=== PATIENT | male | born 2000 | race Caucasian/White ===

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

== ENCOUNTER → 2020-12-06 | Day surgery (SDC) | payer BC, OTHER ==
[2020-12-04 13:28] VITALS: BMI 41.7
[~2020-12-06] MED LIST changes: +BUPIVACAINE (PF) 0.5% 30 ML VIAL SQ ONE; -DEXAMETHASONE SOD PHOSPHATE 10 MG/ML 1 ML VIAL IV ONE; +DEXAMETHASONE SOD PHOSPHATE 4 MG/ML 1 ML VIAL IV ONE; +HYDROmorphone 0.5 MG/0.5 ML SYRINGE IVP PRN; +KETAMINE 10 MG/ML 20 ML VIAL ONE; -KETAMINE 50 MG/ML 10 ML VIAL IM PRN; -LACTATED RINGERS 1,000 ML IV ONE; +LACTATED RINGERS 1,000 ML IV SCH; -LIDOCAINE 1% 20 ML VIAL (10MG/ML) FOR IV START INTRADERMA ONE; +LIDOCAINE 1% INJ 10MG/ML (20 ML MDV) ONE; +MIDAZOLAM 2 MG/2 ML VIAL IV PRN; +MIDAZOLAM 2 MG/2 ML VIAL ONE; +PROPOFOL 10 MG/ML 20 ML VIAL IV ONE; +Pre Op ABX Message 1 EACH MISC MISCELLANE ONE; +SCOPOLAMINE 1.5MG/72HR PATCH TRANSDERM ONE; +ceFAZolin 3 GM in SODIUM CHLORIDE 0.9% 100 ML IVPB PRN; +fentaNYL (PF) 50 MCG/ML 2 ML AMP ONE; +traMADol 50 MG TAB ONE; +traMADol 50 MG TAB PO ONE
[2020-12-06 11:53] VITALS: TEMP 97.9
[2020-12-06 13:21] VITALS: RESP 20
[2020-12-06 13:46] VITALS: BP 110/71; PULSE 100
--- NOTE | 2020-12-06 13:46 | P.OP ---
Date of Procedure: 12/06/20 Procedure(s) Performed: PREOPERATIVE DIAGNOSES: 1. Left wrist dorsal ganglion cyst POSTOPERATIVE DIAGNOSES: 1. Left wrist dorsal ganglion cyst PROCEDURES PERFORMED: 1. Left wrist dorsal ganglion cyst excision ANESTHESIA: storekeeper engineering: None COMPLICATIONS: None ESTIMATED BLOOD LOSS: none DISPOSITION: To post-anesthesia care unit INDICATIONS: Gil is a 19-year-old male who has had a dorsal ganglion cyst for several months which is symptomatic and inhibiting flexion of the wrist. She desires to have the cyst removed. I discussed the steps of the surgery as well as potential risks and complications as being inclusive of, but not limited to: Bleeding, infection, scarring, discomfort, blood vessel and/or nerve damage, need for further surgery, stiffness, tendon injury, persistence or recurrence of the cyst and other risks. The patient and his mother are aware of these risks and wish to proceed with surgery. The consent form has been signed by the patient. PROCEDURE: After appropriate consent was obtained, the patient was taken to the operating room placed in the supine position. Anesthesia was initiated, and after confirmation of adequate anesthesia, the patient was carefully positioned. Care was taken to make sure that all pressure points were adequately padded. Timeout was called, confirming patient identity, side, procedure, and antibiotics were administered. Limb was exsanguinated with an Esmarch bandage and the tourniquet was inflated to 250 mmHg. Total tourniquet time for the case was approximately 16 minutes. Incision was created following Lise's skin lines over the dorsal aspect of the wrist directly over the palpable and visible cyst. Incision was carried down carefully just through skin and then blunt dissection was carried down to the extensor retinaculum and fascia. Fascial split was performed in line with the incision, revealing the underlying extensor tendons and cyst. Cyst was incised and fluid was removed to ease removal, and it was grasped with a forcep and removed using a combination of blunt and sharp dissection with both knife and dissecting scissors. The cyst was carried down to its stalk which appeared to be emanating from the radiocarpal joint. This stalk was excised removing a square-shaped segment of dorsal capsule approximately 3 mm x 3 mm in size. The radiocarpal joint was able to be visualized through this small window. Cauterization was performed of the capsule around the window to maintain hemostasis. Tourniquet was released and hemostasis was accomplished with a combination of cauterization and pressure. Closure was performed of the skin using a running subcuticular 4-0 Monocryl suture followed by Exofin cyanoacrylate topical glue. Vascular status remained good with less than 2 second capillary refill. Patient tolerated the procedure well and taken to recovery room in stable condition. Counts were correct.
== END | disposition home or self-care (01) ==
LOC: OR 11:11
PROVIDERS: ATTEND Orthopaedic Surgery
DX: M67.432 Ganglion, left wrist (principal); F32.9 Major depressive disorder, single episode, unspecified; F84.0 Autistic disorder; F31.9 Bipolar disorder, unspecified; Z97.3 Presence of spectacles and contact lenses; Z98.890 Other specified postprocedural states; J45.909 Unspecified asthma, uncomplicated; F90.9 Attention-deficit hyperactivity disorder, unspecified type; Z79.1 Long term (current) use of non-steroidal anti-inflammatories (NSAID); Z79.899 Other long term (current) drug therapy; Z88.0 Allergy status to penicillin; Z88.8 Allergy status to other drugs, medicaments and biological substances
CPT/HCPCS: 88304; 25111; J2250; J1100; J0690; J2405; J2001; J3010; J2704

== ENCOUNTER 2022-09-27 11:41 | Emergency (ER) | payer OTHER ==
[2022-09-27 11:50] VITALS: RESP 18; TEMP 97.4
[2022-09-27] MEDS ORDERED: KETOROLAC 15 MG/ML 1 ML VIAL IVP STA (12:01)
[2022-09-27] MEDS ORDERED: SODIUM CHLORIDE 0.9% 1,000 ML IV STA (12:01)
[2022-09-27] MEDS ORDERED: LIDOCAINE 5% PATCH TOPICAL STA (12:01)
[2022-09-27 12:21] LABS: Basophils % (A) 0 %; Eosinophils # (A) 0.2 k/uL (0-0.7); Eosinophils % (A) 3 %; HCT 54.3 % (39.0-53.0); HGB 18.7 gm/dL (13.0-17.5); Lymphocytes # (A) 2.7 k/uL (1.0-4.8); Lymphocytes % (A) 38 %; MCHC 34.4 g/dL (31.0-37.0); MCV 87.4 fL (80.0-100.0); Monocytes # (A) 0.4 k/uL (0-1.0); Monocytes % (A) 6 %; Neutrophils # (A) 3.7 k/uL (1.3-7.7); Neutrophils % (A) 51 %; Platelet Count 200 k/uL (150-450); RBC 6.22 m/uL (4.30-5.90); RDW 14.4 % (11.5-15.5); WBC 7.2 k/uL (3.8-10.6)
[2022-09-27 12:30] LABS: ALT 57 U/L (4-49); AST 33 U/L (17-59); African American GFR (CKD) >90 (>60 ml/min/1.73 sqM); Albumin 4.3 g/dL (3.5-5.0); Alkaline Phosphatase 59 U/L (38-126); Anion Gap 8 mmol/L; Blood Urea Nitrogen 8 mg/dL (9-20); Calcium 9.5 mg/dL (8.4-10.2); Carbon Dioxide 26 mmol/L (22-30); Chloride 107 mmol/L (98-107); Glucose 97 mg/dL (74-99); Lipase 463 U/L (23-300); Non-African American GFR(CKD) >90 (>60 ml/min/1.73 sqM); Potassium 4.7 mmol/L (3.5-5.1); Sodium 141 mmol/L (137-145); Total Bilirubin 1.5 mg/dL (0.2-1.3); Total Protein 7.1 g/dL (6.3-8.2)
[2022-09-27 13:23] LABS: Appearance,Urine Clear (Clear); Bilirubin,Urine Negative (Negative); Blood,Urine Negative (Negative); Color,Urine Yellow; Glucose,Urine (UA) Negative (Negative); Ketones,Urine Negative (Negative); Leukocyte Esterase,Urine Large (Negative); Mucus,Urine Rare /hpf; Nitrite,Urine Negative (Negative); PH, Urine 5.5 (5.0-8.0); Protein,Urine Negative (Negative); RBC,Urine <1 /hpf (0-5); Specific Gravity,Urine 1.019 (1.001-1.035); Urobilinogen,Urine <2.0 mg/dL (<2.0); WBC,Urine 1 /hpf (0-5)
--- NOTE | 2022-09-27 13:27 | ED ---
Abdominal Pain HPI - General Source: patient Mode of arrival: ambulatory Limitations: no limitations <Alejandra Ordoñez - Last Filed: 09/27/22 13:55> <Leonid Espinoza - Last Filed: 09/27/22 14:13> - General Chief Complaint: Abdominal Pain Stated Complaint: abd pain Time Seen by Provider: 09/27/22 11:45 - History of Present Illness Initial Comments: Patient is a 21-year-old male who presents to the emergency department with a chief complaint of back pain. Although triage note says patient presents for abdominal pain. Patient is adamant that he does not have pain in his abdomen. Patient woke up with pain in his middle right back. He denies injuring recent falls. Patient describes it as an aching pain that is worse with movement of his torso. He is not taking pain medication yet. He denies numbness and t ingling, leg weakness. No saddle anesthesia. No loss of bowel or bladder function. No fever, chills, nausea, vomiting, blood in urine, burning with urination. (Alejandra Ordoñez) - Related Data Home Medications Medication Instructions Recorded Confirmed Albuterol Inhaler [Ventolin Hfa 1 - 2 puff INHALATION RT-Q6H PRN 07/02/16 09/27/22 Inhaler] Fluticasone Propionate [Flovent 1 puff INHALATION RT-DAILY 07/13/16 09/27/22 Hfa 44 mcg] Lisdexamfetamine Dimesylate 50 mg PO DAILY 06/02/18 09/27/22 [Vyvanse] Temazepam [Restoril] 30 mg PO HS 12/04/20 09/27/22 Cariprazine HCl [Vraylar] 4.5 mg PO DAILY 08/11/22 09/27/22 Citalopram Hydrobromide [CeleXA] 40 mg PO HS 08/11/22 09/27/22 cloNIDine HCL [Catapres] 0.3 mg PO HS 08/11/22 09/27/22 Previous Rx's Medication Instructions Recorded Cyclobenzaprine [Flexeril] 10 mg PO TID PRN #15 tab 09/27/22 Ibuprofen [Motrin] 800 mg PO Q8HR PRN #30 tab 09/27/22 Lidocaine 5% Patch [Lidoderm 5% 1 patch TOPICAL DAILY PRN #7 patch 09/27/22 Patch] Allergies Allergy/AdvReac Type Severity Reaction Status Date / Time haloperidol [From Haldol] Allergy Anaphylaxis Verified 09/27/22 12:37 Penicillins Allergy Unknown Verified 09/27/22 12:37 Childhood Review of Systems ROS Other: All systems not noted in ROS Statement are negative. <Alejandra Ordoñez - Last Filed: 09/27/22 13:55> ROS Other: All systems not noted in ROS Statement are negative. <NickmaricarmenclaudioLeonid - Last Filed: 09/27/22 14:13> ROS Statement: Those systems with pertinent positive or pertinent negative responses have been documented in the HPI. Past Medical History Past Medical History: Asthma, GERD/Reflux Additional Past Medical History / Comment(s): Patient goes by his middle name - John(Vito) IBS. "Has mentality of a 10-11 yr old." bipolar, autistic History of Any Multi-Drug Resistant Organisms: None Reported Past Surgical History: No Surgical Hx Reported Additional Past Surgical History / Comment(s): rt wrist ganglion cyst Past Anesthesia/Blood Transfusion Reactions: No Reported Reaction Additional Past Anesthesia/Blood Transfusion Reaction / Comment(s): Has never had anesthesia before. Past Psychological History: ADD/ADHD, Anxiety, Bipolar, Depression Smoking Status: Never smoker Past Alcohol Use History: None Reported Past Drug Use History: None Reported - Past Family History Mother Family Medical History: Pulmonary Embolus Additional Family Medical History / Comment(s): grandmother-multiple PE's. clotting disorder in family-unknown type <Alejandra Ordoñez - Last Filed: 09/27/22 13:55> General Exam Limitations: no limitations General appearance: alert, in no apparent distress Head exam: Present: atraumatic, normocephalic, normal inspection Eye exam: Present: normal appearance, PERRL, EOMI. Absent: scleral icterus, conjunctival injection, periorbital swelling Respiratory exam: Present: normal lung sounds bilaterally. Absent: respiratory distress, wheezes, rales, rhonchi, stridor Cardiovascular Exam: Present: regular rate, normal rhythm, normal heart sounds. Absent: systolic murmur, diastolic murmur, rubs, gallop, clicks GI/Abdominal exam: Present: soft, normal bowel sounds. Absent: distended, tenderness, guarding, rebound, rigid Back exam: Present: normal inspection, full ROM, paraspinal tenderness (thoracic just inferior to scapula). Absent: tenderness, CVA tenderness (R), CVA tenderness (L), vertebral tenderness Neurological exam: Present: alert, oriented X3, CN II-XII intact Psychiatric exam: Present: normal affect, normal mood <Alejandra Ordoñez - Last Filed: 09/27/22 13:55> Course Vital Signs 09/27/22 09/27/22 11:42 13:45 Temperature 97.4 F L Pulse Rate 98 86 Respiratory 18 18 Rate Blood Pressure 113/72 122/77 O2 Sat by Pulse 100 98 Oximetry Medical Decision Making - Lab Data Result diagrams: 09/27/22 12:04 09/27/22 12:04 <Alejandra Ordoñez - Last Filed: 09/27/22 13:55> - Lab Data Result diagrams: 09/27/22 12:04 09/27/22 12:04 <Leonid Espinoza - Last Filed: 09/27/22 14:13> - Medical Decision Making Was pt. sent in by a medical professional or institution (, PA, PATIENT ACCESS SPECIALIST, urgent care, hospital, or detention...) When possible be specific @ -[No] Did you speak to anyone other than the patient for history (EMS, parent, family, police, friend...)? What history was obtained from this source @ -[No] Did you review nursing and triage notes (agree or disagree)? Why? @ -[I reviewed and is agreeable. Patient does not have abdominal pain. Were old charts reviewed (outside hosp., previous admission, EMS record, old EKG, old radiological studies, urgent care reports/EKG's, detention records)? Report findings @ -[No old charts were reviewed] Differential Diagnosis (chest pain, altered mental status, abdominal pain women, abdominal pain men, vaginal bleeding, weakness, fever, dyspnea, syncope, headache, dizziness, GI bleed, back pain, seizure, CVA, palpatations, mental health)? @ -Differential Back Pain: Strain, zoster, cauda equina syndrome, epidural abscess, vertebral osteomyelitis, discitis, fracture, subluxation, disc herniation, DJD, spinal stenosis, dissection, AAA, pancreatitis, peptic ulcer disease, pyelonephritis, kidney stone, this is not meant to be an all-inclusive list. EKG interpreted by me (3pts min.). @ -[As above] X-rays interpreted by me (1pt min.). @ -[None done] CT interpreted by me (1pt min.). @ -[None done] U/S interpreted by me (1pt. min.). @ -[None done] What testing was considered but not performed or refused? (CT, X-rays, U/S, labs)? Why? @ -[None] What meds were considered but not given or refused? Why? @ -[None] Did you discuss the management of the patient with other professionals (professionals i.e. , PA, PATIENT ACCESS SPECIALIST, lab, RT, psych nurse, social security assessor, draw end hand, teacher, correction officer city or county jail, dependency case manager)? Give summary @ -[No] Was smoking cessation discussed for >3mins.? @ -[No] Was critical care preformed (if so, how long)? @ -[No] Were there social determinants of health that impacted care today? How? ( Homelessness, low income, unemployed, alcoholism, drug addiction, transportation, low edu. Level, literacy, decrease access to med. care, alf, rehab)? @ -[No] Was there de-escalation of care discussed even if they declined (Discuss DNR or withdrawal of care, Hospice)? DNR status @ -[No] What co-morbidities impacted this encounter? (DM, HTN, Smoking, COPD, CAD, Cancer, CVA, ARF, Chemo, Hep., AIDS, mental health diagnosis, sleep apnea, morbid obesity)? @ -[None] Was patient admitted / discharged? Hospital course, mention meds given and route, prescriptions, significant lab abnormalities, going to OR and other pertinent info. @ -Patient presenting with pain in his middle back consistent with mechanical back pain. Laboratory studies obtained. There is no leukocytosis. Lipase is elevated at 463. Clinical presentation is not consistent with pancreatitis. Pain treated in the emergency Department patient feeling well and eager for discharge. Undiagnosed new problem with uncertain prognosis? @ -[No] Drug Therapy requiring intensive monitoring for toxicity (Heparin, Nitro, Insulin, Cardizem)? @ -[No] Were any procedures done? @ -[No] Diagnosis/symptom? @ -back pain Acute, or Chronic, or Acute on Chronic? @ -acute Uncomplicated (without systemic symptoms) or Complicated (systemic symptoms)? @ -uncomplicated Side effects of treatment? @ -[No] Exacerbation, Progression, or Severe Exacerbation? @ -[No] Poses a threat to life or bodily function? How? (Chest pain, [place], [place], pneumonia, PE, COPD, DKA, ARF, appy, cholecystitis, CVA, Diverticulitis, Homicidal, Suicidal, threat to staff... and all critical care pts) @ -[No] Dr. Espinoza is my atttending (Alejandra Ordoñez) - Lab Data Lab Results 09/27/22 09/27/22 09/27/22 Range/Units 12:04 12:04 12:04 WBC 7.2 (3.8-10.6) k/uL RBC 6.22 H (4.30-5.90) m/uL Hgb 18.7 H (13.0-17.5) gm/dL Hct 54.3 H (39.0-53.0) % MCV 87.4 (80.0-100.0) fL MCH 30.0 (25.0-35.0) pg MCHC 34.4 (31.0-37.0) g/dL RDW 14.4 (11.5-15.5) % Plt Count 200 (150-450) k/uL MPV 10.0 Neutrophils % 51 % Lymphocytes % 38 % Monocytes % 6 % Eosinophils % 3 % Basophils % 0 % Neutrophils # 3.7 (1.3-7.7) k/uL Lymphocytes # 2.7 (1.0-4.8) k/uL Monocytes # 0.4 (0-1.0) k/uL Eosinophils # 0.2 (0-0.7) k/uL Basophils # 0.0 (0-0.2) k/uL Sodium 141 (137-145) mmol/L Potassium 4.7 (3.5-5.1) mmol/L Chloride 107 (98-107) mmol/L Carbon Dioxide 26 (22-30) mmol/L Anion Gap 8 mmol/L BUN 8 L (9-20) mg/dL Creatinine 0.69 (0.66-1.25) mg/dL Est GFR (CKD-EPI)AfAm >90 (>60 ml/min/1.73 sqM) Est GFR (CKD-EPI)NonAf >90 (>60 ml/min/1.73 sqM) Glucose 97 (74-99) mg/dL Plasma Lactic Acid Quinn (0.7-2.0) mmol/L Calcium 9.5 (8.4-10.2) mg/dL Total Bilirubin 1.5 H (0.2-1.3) mg/dL AST 33 (17-59) U/L ALT 57 H (4-49) U/L Alkaline Phosphatase 59 (38-126) U/L Total Protein 7.1 (6.3-8.2) g/dL Albumin 4.3 (3.5-5.0) g/dL Lipase 463 H (23-300) U/L Urine Color Yellow Urine Appearance Clear (Clear) Urine pH 5.5 (5.0-8.0) Ur Specific [place] 1.019 (1.001-1.035) Urine Protein Negative (Negative) Urine Glucose (UA) Negative (Negative) Urine Ketones Negative (Negative) Urine Blood Negative (Negative) Urine Nitrite Negative (Negative) Urine Bilirubin Negative (Negative) Urine Urobilinogen <2.0 (<2.0) mg/dL Ur Leukocyte Esterase Large H (Negative) Urine RBC <1 (0-5) /hpf Urine WBC 1 (0-5) /hpf Urine Mucus Rare H (None) /hpf 09/27/22 Range/Units 12:04 WBC (3.8-10.6) k/uL RBC (4.30-5.90) m/uL Hgb (13.0-17.5) gm/dL Hct (39.0-53.0) % MCV (80.0-100.0) fL MCH (25.0-35.0) pg MCHC (31.0-37.0) g/dL RDW (11.5-15.5) % Plt Count (150-450) k/uL MPV Neutrophils % % Lymphocytes % % Monocytes % % Eosinophils % % Basophils % % Neutrophils # (1.3-7.7) k/uL Lymphocytes # (1.0-4.8) k/uL Monocytes # (0-1.0) k/uL Eosinophils # (0-0.7) k/uL Basophils # (0-0.2) k/uL Sodium (137-145) mmol/L Potassium (3.5-5.1) mmol/L Chloride (98-107) mmol/L Carbon Dioxide (22-30) mmol/L Anion Gap mmol/L BUN (9-20) mg/dL Creatinine (0.66-1.25) mg/dL Est GFR (CKD-EPI)AfAm (>60 ml/min/1.73 sqM) Est GFR (CKD-EPI)NonAf (>60 ml/min/1.73 sqM) Glucose (74-99) mg/dL Plasma Lactic Acid Quinn 1.2 (0.7-2.0) mmol/L Calcium (8.4-10.2) mg/dL Total Bilirubin (0.2-1.3) mg/dL AST (17-59) U/L ALT (4-49) U/L Alkaline Phosphatase (38-126) U/L Total Protein (6.3-8.2) g/dL Albumin (3.5-5.0) g/dL Lipase (23-300) U/L Urine Color Urine Appearance (Clear) Urine pH (5.0-8.0) Ur Specific [place] (1.001-1.035) Urine Protein (Negative) Urine Glucose (UA) (Negative) Urine Ketones (Negative) Urine Blood (Negative) Urine Nitrite (Negative) Urine Bilirubin (Negative) Urine Urobilinogen (<2.0) mg/dL Ur Leukocyte Esterase (Negative) Urine RBC (0-5) /hpf Urine WBC (0-5) /hpf Urine Mucus (None) /hpf Disposition Is patient prescribed a controlled substance at d/c from ED?: No <Alejandra Ordoñez - Last Filed: 09/27/22 13:55> <Leonid Espinoza - Last Filed: 09/27/22 14:13> Clinical Impression: Back pain Disposition: HOME SELF-CARE Condition: Good Instructions (If sedation given, give patient instructions): Back Pain (ED) Additional Instructions: Take medication as directed. Do not drink alcohol or operate machinery while taking Flexeril as it can cause drowsiness. Please follow-up with your primary care provider in 1-2 days. Return to the emergency department if you experience new, concerning, or worsening symptoms. Prescriptions: Cyclobenzaprine [Flexeril] 10 mg PO TID PRN #15 tab PRN Reason: Muscle Spasm Lidocaine 5% Patch [Lidoderm 5% Patch] 1 patch TOPICAL DAILY PRN #7 patch PRN Reason: Pain Ibuprofen [Motrin] 800 mg PO Q8HR PRN #30 tab PRN Reason: Pain Referrals: Damien Miner MD [Primary Care Provider] - 1-2 days
[2022-09-27 13:52] VITALS: BP 122/77; PULSE 86
== END 2022-09-27 13:50 | disposition home or self-care (01) ==
LOC: EC 11:41
DX: M54.9 Dorsalgia, unspecified (principal); J45.909 Unspecified asthma, uncomplicated; F41.9 Anxiety disorder, unspecified; F31.9 Bipolar disorder, unspecified; Z88.0 Allergy status to penicillin; Z88.8 Allergy status to other drugs, medicaments and biological substances; Z79.51 Long term (current) use of inhaled steroids; Z79.899 Other long term (current) drug therapy
CPT/HCPCS: 36415; 80053; 83605; 83690; 85025; 81001; 99284; 96374; 96361; J1885